=== PATIENT | male | born 1995 | race Caucasian/White ===

== ENCOUNTER 2018-12-13 21:03 | Emergency (ER) | payer SELFPAY ==
--- NOTE | 2018-12-13 21:47 | NUR ---
PATIENT LEFT WITHOUT BEING SEEN BY ERMD OR TRIAGED
== END 2018-12-13 21:50 | disposition left against medical advice (07) ==
LOC: ER 21:03
DX: Z53.21 Procedure and treatment not carried out due to patient leaving prior to being seen by health care provider (principal)